=== PATIENT | male | born 1950 | race Caucasian/White ===

== ENCOUNTER → 2020-07-29 | Outpatient (CLI) | payer MEDICARE, BC ==
[~2020-07-29] MED LIST: ASPI325T8 PO; CRESTOR10 MG PO; LISI-338 PO; METO50TA29 PO; OMEG1CAP6 PO; VITA100022 PO
[2020-08-02 09:20] VITALS: BP 107/75
== END ==
LOC: LAB 12:15
PROVIDERS: ATTEND Nurse Anesthetist, Certified Registered
DX: Z01.812 Encounter for preprocedural laboratory examination (principal); Z12.11 Encounter for screening for malignant neoplasm of colon; Z20.828 Contact with and (suspected) exposure to other viral communicable diseases
CPT/HCPCS: C9803; U0003

== ENCOUNTER → 2020-08-02 | Day surgery (SDC) | payer MEDICARE, BC ==
[~2020-08-02] MED LIST changes: +IPRATRPIUM/ALBUTEROL 0.5/2.5MG 3 ML NEBU. NEB PRN; +IV RINGERS SOLUTION,LACTATED 1,000 ML IV SCH; +LIDOCAINE 2% PF 5 ML VIAL. ONE; +MIDAZOLAM HCL PF 2 MG/2 ML VIAL. IV ONE; +ONDANSETRON PF 4 MG/2 ML VIAL. IV PRN; +PROPOFOL 10,000 MCG/ML (20ML) VIAL IV ONE
[2020-08-02 09:20] VITALS: BP 107/75
--- NOTE | 2020-08-04 15:13 | PATHOLOGY ---
[facility] Accession Number: [id number] . 01 Material submitted: . PART A: colon - DESCENDING POLYP. Modifiers: descending PART B: colon - TRANSVERSE POLYP. Modifiers: transverse PART C: colon - ASCENDING POLYP. Modifiers: ascending . 02 Diagnosis: A. Colon biopsies, descending colon polyp: - Tubular adenoma. . B. Colon biopsies, transverse colon polyps: - Segment (1) of tubular adenoma. - Segments (2) of sessile serrated polyp/adenoma. . C. Colon biopsies, ascending colon polyp: - Tubular adenoma. ([facility] 08/04/2020) [facility] 08/04/2020 1455 Local . 02 Comment: There is no high-grade dysplasia or evidence of malignancy. ([facility] 08/04/2020) . 02 Electronically signed: . Edmond Nuñez MD, Pathologist NPI- [id number] . 01 Gross description: . A. The specimen is received in formalin, labeled "Jay Partida, descending colon polyp". Received are two segments of pale borja soft tissue ranging in size from 0.3 to 0.7 cm in maximum dimensions. The specimen is submitted entirely in cassette A1. . B. The specimen is received in formalin, labeled "Jay Partida, transverse polyp". Received are four segments of pale borja soft tissue ranging in size from 0.3 to 0.4 cm in maximum dimensions. The specimen is submitted entirely in cassette B1. . C. The specimen is received in formalin, labeled "Jay Partida, ascending polyp". Received are multiple segments of pale borja soft tissue ranging in size from 0.3 to 0.6 cm in maximum dimensions. The specimen is submitted entirely in cassette C1. ([facility]; 08/03/2020) [facility] 08/03/2020 1420 Local . 02 Pathologist provided ICD-10: D12.4, D12.3, D12.2 . 02 CPT . 160019, 734977, 164534 Specimen Comment: A courtesy copy of this report has been sent to [phone], [phone] Specimen Comment: [id number] Specimen Comment: Report sent to / DR VALENCIA Performed at: 01 [facility] [address] [place] [address] [address], [place] [id number] MD Willy Argueta MD Phone: [phone] Performed at: 02 [facility] [address] [place], [place] [id number] MD Edmodn Nuñez MD Phone: [phone]
== END | disposition home or self-care (01) ==
LOC: SURG 07:26
PROVIDERS: ATTEND Emergency Medicine
DX: Z12.11 Encounter for screening for malignant neoplasm of colon (principal); D12.2 Benign neoplasm of ascending colon; D12.3 Benign neoplasm of transverse colon; D12.4 Benign neoplasm of descending colon; K64.8 Other hemorrhoids; Z88.8 Allergy status to other drugs, medicaments and biological substances; Z79.82 Long term (current) use of aspirin; Z79.899 Other long term (current) drug therapy; Z86.010 Personal history of colon polyps
CPT/HCPCS: 45380; 45385; 88305; J2001; J2704; J7120; 64451

== ENCOUNTER → 2021-06-14 | Outpatient (CLI) | payer MEDICARE, BC ==
[2020-08-02 09:20] VITALS: BP 107/75
[~2021-06-14] MED LIST changes: -IPRATRPIUM/ALBUTEROL 0.5/2.5MG 3 ML NEBU. NEB PRN; -IV RINGERS SOLUTION,LACTATED 1,000 ML IV SCH; -LIDOCAINE 2% PF 5 ML VIAL. ONE; -LISI-338 PO; +LISI-517 PO; -MIDAZOLAM HCL PF 2 MG/2 ML VIAL. IV ONE; -ONDANSETRON PF 4 MG/2 ML VIAL. IV PRN; -PROPOFOL 10,000 MCG/ML (20ML) VIAL IV ONE
--- NOTE | 2021-06-14 10:48 | RAD ---
EXAM: CT CHEST WITHOUT CONTRAST (LDCT LUNG CANCER SCREENING). HISTORY: Risk factors for pulmonary malignancy. Tobacco dependence. TECHNIQUE: CT of the chest was performed without intravenous contrast using a low-dose lung screening protocol. Findings analysis is based on ACR Lung-RADS v1.1. *One or more of the following individual ized dose reduction techniques were utilized for this examination: 1. Automated exposure control. 2. Adjustment of the mA and/or kV according to patient size. 3. Use of iterative reconstruction technique. COMPARISON: None. FINDINGS: Nodules: No clinically suspicious nodules. Other findings: Images of the upper abdomen reveal no acute abnormality. Bone windows reveal no suspi cious lesions. There are no pathologically enlarged mediastinal or axillary lymph nodes. There is no pleural or mily cardial effusion. The heart is not enlarged. No pulmonary parenchymal process is identified. Mild centrilobular pulmonary emphysema. IMPRESSION/RECOMMENDATION: 1. ACR Lung-RADS category: 1, negative . 2. Continue annual screening with LDCT in 12 months. 3. Mild centrilobular pulmonary emphysema. Electronically signed by: Sugey Knight MD (06/14/2021 10:45 AM) [id number]
--- NOTE | 2021-06-14 16:20 | RAD ---
CLINICAL HISTORY: Reason: SCREENING FOR AAA, HX OF SMOKING COMPARISON: None available. TECHNIQUE: The abdominal aorta was examined from the diaphragm to the proximal common iliac arteries. FINDINGS: There is plaque in the abdominal aorta, greatest mid to distally. No aortic aneurysm seen. The proximal abdominal aorta measures 2.6 centimeters in AP dimension. The mid abdominal aorta measures 1.7 centimeters in AP dimension. The distal abdominal aorta measures 1.3 centimeters in AP dimension. The right common iliac artery measures 1.3 x 1.2 cm in diameter. The left common iliac artery measur es 1.3 x 1.2 cm diameter. IMPRESSION: No aortic aneurysm. Electronically signed by: Cyndee Olivo MD (06/14/2021 4:18 PM) [id number]
== END ==
LOC: CT 08:13
PROVIDERS: ATTEND Family Medicine
DX: Z12.2 Encounter for screening for malignant neoplasm of respiratory organs (principal); Z13.6 Encounter for screening for cardiovascular disorders; J43.2 Centrilobular emphysema; F17.210 Nicotine dependence, cigarettes, uncomplicated; I70.0 Atherosclerosis of aorta
CPT/HCPCS: 71271; 76770